=== PATIENT | male | born 1995 | race African-American/Black ===

== ENCOUNTER 2017-12-05 12:03 | Emergency (ER) | payer OTHER ==
[~2017-12-05] VITALS: Ht 182.9 cm; Wt 85.0 kg
[2017-12-05] MEDS ORDERED: HYDROCORTISONE 1% 30 GM OINTMENT TP PRN (13:00)
[2017-12-05 14:01] VITALS: BP 125/68
== END 2017-12-05 14:02 | disposition home or self-care (01) ==
LOC: EMS 12:10
DX: L20.9 Atopic dermatitis, unspecified (principal); T50.995A Adverse effect of other drugs, medicaments and biological substances, initial encounter; Y92.89 Other specified places as the place of occurrence of the external cause
CPT/HCPCS: 99283